=== PATIENT | male | born 1930 | race Caucasian/White ===

== ENCOUNTER 2016-11-08 13:49 | Outpatient (CLI) | payer MEDICARE, OTHER ==
[2016-04-28 20:57] VITALS: BP 130/78
== END 2016-11-08 13:50 ==
LOC: LAB 13:49
PROVIDERS: ATTEND Internal Medicine Cardiovascular Disease
DX: Z51.81 Encounter for therapeutic drug level monitoring (principal); Z79.01 Long term (current) use of anticoagulants
CPT/HCPCS: 36415; 85610

== ENCOUNTER 2016-12-06 14:02 | Outpatient (CLI) | payer MEDICARE, OTHER ==
[2016-04-28 20:57] VITALS: BP 130/78
== END 2016-12-06 14:03 ==
LOC: LAB 14:02
PROVIDERS: ATTEND Internal Medicine Cardiovascular Disease
DX: Z51.81 Encounter for therapeutic drug level monitoring (principal); Z79.01 Long term (current) use of anticoagulants; I48.0 Paroxysmal atrial fibrillation
CPT/HCPCS: 36415; 85610

== ENCOUNTER 2016-12-13 11:29 | Outpatient (CLI) | payer MEDICARE, OTHER ==
[2016-04-28 20:57] VITALS: BP 130/78
== END 2016-12-13 11:30 ==
LOC: LAB 11:29
PROVIDERS: ATTEND Internal Medicine Cardiovascular Disease
DX: I48.0 Paroxysmal atrial fibrillation (principal)
CPT/HCPCS: 36415; 85610

== ENCOUNTER 2016-12-22 08:02 | Outpatient (CLI) | payer MEDICARE, OTHER ==
[2016-04-28 20:57] VITALS: BP 130/78
[2016-12-22 08:24] LABS: BASOPHILS % 0.7 (0.0-1.5); LYMPHOCYTES # 3.1 # k/uL (0.6-4.0); MEAN CORPUSCULAR HEMOGLOBIN 31.2 pg (28.0-34.0); MONOCYTES # 0.3 # k/uL (0.0-0.9); MONOCYTES % 4.3 % (0.0-11.0)
[2016-12-22 08:48] LABS: eGFR (African) 33; eGFR (Non-African) 27
== END 2016-12-22 08:04 ==
LOC: LAB 08:02
PROVIDERS: ATTEND Internal Medicine Cardiovascular Disease
DX: I48.0 Paroxysmal atrial fibrillation (principal); E78.5 Hyperlipidemia, unspecified; I10 Essential (primary) hypertension
CPT/HCPCS: 36415; 80053; 80061; 84443; 85025

== ENCOUNTER 2017-01-02 12:03 | Outpatient (CLI) | payer MEDICARE, OTHER ==
[2016-04-28 20:57] VITALS: BP 130/78
== END 2017-01-02 12:04 ==
LOC: LAB 12:03
PROVIDERS: ATTEND Internal Medicine Cardiovascular Disease
DX: Z51.81 Encounter for therapeutic drug level monitoring (principal); Z79.01 Long term (current) use of anticoagulants; I48.91 Unspecified atrial fibrillation
CPT/HCPCS: 36415; 85610

== ENCOUNTER 2017-01-31 11:49 | Outpatient (CLI) | payer MEDICARE, OTHER ==
[2016-04-28 20:57] VITALS: BP 130/78
== END 2017-01-31 11:50 ==
LOC: LAB 11:49
PROVIDERS: ATTEND Internal Medicine Cardiovascular Disease
DX: Z51.81 Encounter for therapeutic drug level monitoring (principal); Z79.01 Long term (current) use of anticoagulants; I48.0 Paroxysmal atrial fibrillation
CPT/HCPCS: 36415; 85610

== ENCOUNTER 2017-02-28 10:07 | Outpatient (CLI) | payer MEDICARE, OTHER ==
[2016-04-28 20:57] VITALS: BP 130/78
== END 2017-02-28 10:10 ==
LOC: LAB 10:07
PROVIDERS: ATTEND Internal Medicine Cardiovascular Disease
DX: Z51.81 Encounter for therapeutic drug level monitoring (principal); Z79.01 Long term (current) use of anticoagulants; I48.0 Paroxysmal atrial fibrillation
CPT/HCPCS: 36415; 85610

== ENCOUNTER 2017-03-28 12:54 | Outpatient (CLI) | payer MEDICARE, OTHER ==
[2016-04-28 20:57] VITALS: BP 130/78
== END 2017-03-28 12:55 ==
LOC: LAB 12:54
PROVIDERS: ATTEND Internal Medicine Cardiovascular Disease
DX: I48.0 Paroxysmal atrial fibrillation (principal)
CPT/HCPCS: 36415; 85610

== ENCOUNTER 2017-04-25 09:10 | Outpatient (CLI) | payer MEDICARE, OTHER ==
[2016-04-28 20:57] VITALS: BP 130/78
== END 2017-04-25 09:20 ==
LOC: LAB 09:10
PROVIDERS: ATTEND Internal Medicine Hepatology
DX: Z51.81 Encounter for therapeutic drug level monitoring (principal); Z79.01 Long term (current) use of anticoagulants
CPT/HCPCS: 36415; 85610

== ENCOUNTER 2017-05-10 09:05 | Outpatient (CLI) | payer MEDICARE, OTHER ==
[2016-04-28 20:57] VITALS: BP 130/78
== END 2017-05-10 09:06 ==
LOC: LAB 09:05
PROVIDERS: ATTEND Internal Medicine Cardiovascular Disease
DX: I48.0 Paroxysmal atrial fibrillation (principal)
CPT/HCPCS: 36415; 85610

== ENCOUNTER 2017-05-31 09:43 | Outpatient (CLI) | payer MEDICARE, OTHER ==
[2016-04-28 20:57] VITALS: BP 130/78
== END 2017-05-31 09:44 ==
LOC: LAB 09:43
PROVIDERS: ATTEND Internal Medicine Cardiovascular Disease
DX: I48.0 Paroxysmal atrial fibrillation (principal)
CPT/HCPCS: 36415; 85610

== ENCOUNTER 2017-06-14 11:12 | Outpatient (CLI) | payer MEDICARE, OTHER ==
[2016-04-28 20:57] VITALS: BP 130/78
== END 2017-06-14 11:13 ==
LOC: LAB 11:12
PROVIDERS: ATTEND Internal Medicine Cardiovascular Disease
DX: I48.0 Paroxysmal atrial fibrillation (principal)
CPT/HCPCS: 36415; 85610

== ENCOUNTER 2017-07-12 10:59 | Outpatient (CLI) | payer MEDICARE, OTHER ==
[2016-04-28 20:57] VITALS: BP 130/78
== END 2017-07-12 11:00 ==
LOC: LAB 10:59
PROVIDERS: ATTEND Internal Medicine Cardiovascular Disease
DX: Z79.01 Long term (current) use of anticoagulants (principal)
CPT/HCPCS: 36415; 85610

== ENCOUNTER 2017-07-26 10:10 | Outpatient (CLI) | payer MEDICARE, OTHER ==
[2016-04-28 20:57] VITALS: BP 130/78
== END 2017-07-26 10:11 ==
LOC: LAB 10:10
PROVIDERS: ATTEND Internal Medicine Cardiovascular Disease
DX: Z79.1 Long term (current) use of non-steroidal anti-inflammatories (NSAID) (principal)
CPT/HCPCS: 36415; 85610

== ENCOUNTER 2017-08-02 10:19 | Outpatient (CLI) | payer MEDICARE, OTHER ==
[2016-04-28 20:57] VITALS: BP 130/78
== END 2017-08-02 10:20 ==
LOC: LAB 10:19
PROVIDERS: ATTEND Internal Medicine Cardiovascular Disease
DX: Z79.01 Long term (current) use of anticoagulants (principal)
CPT/HCPCS: 36415; 85610

== ENCOUNTER 2017-08-09 09:33 | Outpatient (CLI) | payer MEDICARE, OTHER ==
[2016-04-28 20:57] VITALS: BP 130/78
== END 2017-08-09 09:34 ==
LOC: LAB 09:33
PROVIDERS: ATTEND Internal Medicine Cardiovascular Disease
DX: Z79.01 Long term (current) use of anticoagulants (principal)
CPT/HCPCS: 36415; 85610

== ENCOUNTER 2017-08-21 08:44 | Outpatient (CLI) | payer MEDICARE, OTHER ==
[2016-04-28 20:57] VITALS: BP 130/78
[2017-08-21 09:23] LABS: EOSINOPHILS % 12.3 % (0.0-6.8); MEAN CORPUSCULAR HEMOGLOBIN 29.5 pg (28.0-34.0); MEAN CORPUSCULAR VOLUME 91.8 fl (80.0-100.0); MONOCYTES % 4.7 % (0.0-11.0); NEUTROPHILS # 3.3 # k/uL (1.4-7.7)
[2017-08-21 09:39] LABS: eGFR (African) 32; eGFR (Non-African) 26
== END 2017-08-21 08:45 ==
LOC: LAB 08:44
PROVIDERS: ATTEND Internal Medicine Cardiovascular Disease
DX: N18.4 Chronic kidney disease, stage 4 (severe) (principal); I48.91 Unspecified atrial fibrillation; I12.9 Hypertensive chronic kidney disease with stage 1 through stage 4 chronic kidney disease, or unspecified chronic kidney disease; Z68.24 Body mass index [BMI] 24.0-24.9, adult
CPT/HCPCS: 36415; 80053; 80061; 84550; 85025; 85610

== ENCOUNTER 2017-08-28 09:46 | Outpatient (CLI) | payer MEDICARE, OTHER ==
[2016-04-28 20:57] VITALS: BP 130/78
== END 2017-08-28 09:50 ==
LOC: LAB 09:46
PROVIDERS: ATTEND Internal Medicine Cardiovascular Disease
DX: Z79.01 Long term (current) use of anticoagulants (principal)
CPT/HCPCS: 36415; 85610

== ENCOUNTER 2017-09-18 09:52 | Outpatient (CLI) | payer MEDICARE, OTHER ==
[2016-04-28 20:57] VITALS: BP 130/78
== END 2017-09-18 10:00 ==
LOC: LAB 09:52
PROVIDERS: ATTEND Internal Medicine Cardiovascular Disease
DX: Z79.01 Long term (current) use of anticoagulants (principal)
CPT/HCPCS: 36415; 85610

== ENCOUNTER 2017-10-16 09:40 | Outpatient (CLI) | payer MEDICARE, OTHER ==
[2016-04-28 20:57] VITALS: BP 130/78
== END 2017-10-16 10:40 ==
LOC: OUT 09:40
PROVIDERS: ATTEND Internal Medicine Cardiovascular Disease
DX: Z79.01 Long term (current) use of anticoagulants (principal)
CPT/HCPCS: 36415; 85610

== ENCOUNTER 2017-11-12 11:29 | Outpatient (CLI) | payer MEDICARE, OTHER ==
[2016-04-28 20:57] VITALS: BP 130/78
== END 2017-11-12 11:30 ==
LOC: LAB 11:29
PROVIDERS: ATTEND Internal Medicine Cardiovascular Disease
DX: Z79.01 Long term (current) use of anticoagulants (principal)
CPT/HCPCS: 36415; 85610

== ENCOUNTER 2017-12-07 11:58 | Emergency (ER) | payer MEDICARE, OTHER ==
--- NOTE | 2017-12-07 12:32 | ED Physician Documentation ---
Fall - HISTORIAN Historian: spouse - HPI Stated Complaint: Right Hip Pain s/p Fall Chief Complaint: Fall Additional Information: 2 days ago, fell in living room, not witnessed. started saying his right hiop hurt the next day. he can ambulate, he doesn't complain of pain, but does when palpated. no other complaints Onset: days ago (2 days) Where: home r: mild Associated Symptoms:: no loss of consciousness Location of Pain/Injury: hip Injury to Right Extremity: hip Injury to Left Extremity: none Further Comments: no - ROS CONST: no problems NEURO: denies: dizziness, anxiety MS/SKIN/LYMPH: denies: weakness, numbness, neck pain, back pain, ankle swelling , leg swelling, rash EYES/ENT: none CVS/RESP: none GI/: denies: problems urinating, nausea - PAST HX Past History: cardiac disease, other (pacer) Allergies/Adverse Reactions: Allergies Allergy/AdvReac Type Severity Reaction Status Date / Time hydralazine HCl [From BiDil] Allergy Unknown Verified 12/07/17 12:05 Penicillins Allergy Unknown Verified 12/07/17 12:05 isosorbide dinitrate Allergy Verified 12/07/17 12:05 [From BiDil] Home Medications: Ambulatory Orders Medication Instructions Recorded Citalopram Hydrobromide 10 mg PO DAILY 12/07/17 [Citalopram HBr] Levothyroxine Sodium [Synthroid] 50 mcg PO DAILY 12/07/17 Memantine HCl [Memantine HCl] 10 mg PO DAILY 12/07/17 Metoprolol Succinate [Toprol XL] 25 mg PO DAILY 12/07/17 QUEtiapine FUMARATE [Seroquel] 25 mg PO DAILY 12/07/17 Warfarin Sodium [Warfarin Sodium] 5 mg PO DAILY 12/07/17 amLODIPine BESYLATE [Norvasc] 5 mg PO DAILY 12/07/17 - SOCIAL HX Smoking History: non-smoker Alcohol Use: none Drug Use: none - FAMILY HX Family History: none - VITAL SIGNS Vital Signs: Vital Signs Temp Pulse Resp BP Pulse Ox 97 F L 72 18 130/61 98 12/07/17 11:58 12/07/17 11:58 12/07/17 11:58 12/07/17 11:58 12/07/17 11:58 - REVIEWED ASSESSMENTS Nursing Assessment Reviewed: Yes Vitals Reviewed: Yes ED Results Lab/Radiology - Radiology Radiology Impressions: pelvis xray NAD right hip - Orders Orders: ED Orders Category Date Time Status PELVIS AP 1 OR 2 VIEWS [RAD] Stat Exams 12/07/17 Ordered Fall Physical Exam - Physical Exam General Appearance: no acute distress, alert Head: non-tender, no swelling Neck: non-tender, painless ROM Eye: EOMI ENT: nml external inspection, no dental injury Resp/CVS: chest non-tender Abdomen: soft Neuro: sensation nml, mood/affect nml Skin: color nml, no rash Back: normal inspection, no CVA tenderness, no vertebral tenderness Extremities: atraumatic, pelvis stable, no pedal edema, nml ROM. No: hips non- tender Joint: Nml gait/weight bearing - Luis Coma Score Eyes Open: Spontaneous Speech: Oriented Motor: Obeys Commands Discharge Clincal Impression: Contusion of right hip region Fall Qualifiers: Encounter type: initial encounter Qualified Code(s): W19.XXXA - Unspecified fall, initial encounter Referrals: Scot Garcia MD [Primary Care Provider] - 2 Days Condition: Good Disposition: 01 HOME, SELF-CARE Decision to Admit: NO Date of Decison to Admit: 12/07/17 Decision Time: 13:32
--- NOTE | 2017-12-07 13:44 | Diagnostic Imaging Report ---
LUL MYERS [facility] [id number] [facility] [address] [facility] [address] [place], [place]. [address] Report Submission Date: Dec 07, 2017 1:18:22 PM INKER MACHINE Patient Study Name: JOANNE BRADSHAW Date: Dec 07, 2017 12:49:33 PM INKER MACHINE Modality Type: CR Gender: M Description: PELVIS : [birth year] Institution: [facility] Physician: LUL MYERS Single frontal view of the pelvis History: PELVIS, RT SIDED PELVIC PAIN AFTER FALL 2 DAYS AGO No similar comparison studies The pubic symphysis and bilateral sacroiliac joints are intact. Degenerative changes are seen in the lower lumbar spine. Surgical clips are noted overlying the left sacroiliac joint. A rounded sclerotic focus is noted at the left sacral ala. Sclerotic line is noted at the left femoral head. Large amount of stool present. Impression: 1. No obvious acute fracture or dislocation of the right hip. However only a single frontal view of the pelvis is provided. 2. Vagus sclerotic line along the left femoral head is seen, while this may be related to architecture, fracture is difficult to entirely exclude. Recommend dedicated bilateral hip radiographs. 3. Degenerative changes in the lower lumbar spine and hips 4. Intact pubic symphysis and sacroiliac joints. Electronically signed on Dec 07, 2017 1:18:22 PM INKER MACHINE by: Kymberly LANDA
[2017-12-07 13:45] VITALS: BP 113/62
== END 2017-12-07 13:44 | disposition home or self-care (01) ==
LOC: ED 11:58
DX: M25.551 Pain in right hip (principal); W19.XXXA Unspecified fall, initial encounter
CPT/HCPCS: 72170; 99282

== ENCOUNTER 2017-12-10 12:15 | Outpatient (CLI) | payer MEDICARE, OTHER | END 2017-12-10 12:16 | LOC: LAB 12:15 | PROVIDERS: ATTEND Internal Medicine Cardiovascular Disease | DX: Z79.01 Long term (current) use of anticoagulants (principal) | CPT/HCPCS: 36415; 85610 ==

== ENCOUNTER 2017-12-31 08:36 | Outpatient (CLI) | payer MEDICARE, OTHER ==
[2017-12-31 08:57] LABS: BASOPHILS % 0.9 (0.0-1.5); EOSINOPHILS % 10.7 % (0.0-6.8); MEAN CORPUSCULAR HEMOGLOBIN 30.7 pg (28.0-34.0); MEAN CORPUSCULAR VOLUME 97.8 fl (80.0-100.0); MONOCYTES % 4.5 % (0.0-11.0); NEUTROPHILS # 3.5 # k/uL (1.4-7.7)
[2017-12-31 09:27] LABS: eGFR (African) 31; eGFR (Non-African) 26
== END 2017-12-31 08:37 ==
LOC: LAB 08:36
PROVIDERS: ATTEND Internal Medicine Cardiovascular Disease
DX: I42.0 Dilated cardiomyopathy (principal); E78.5 Hyperlipidemia, unspecified; E03.9 Hypothyroidism, unspecified
CPT/HCPCS: 36415; 80053; 80061; 84443; 85025

== ENCOUNTER 2018-01-07 10:18 | Outpatient (CLI) | payer MEDICARE, OTHER | END 2018-01-07 10:20 | LOC: LAB 10:18 | PROVIDERS: ATTEND Internal Medicine Cardiovascular Disease | DX: Z79.01 Long term (current) use of anticoagulants (principal) | CPT/HCPCS: 36415; 85610 ==

== ENCOUNTER 2018-01-09 15:51 | Outpatient (CLI) | payer MEDICARE, OTHER ==
--- NOTE | 2018-01-14 11:04 | OP Clinic Progress Note ---
REASON FOR VISIT: This 87-year-old man was seen accompanied by his . He has a marked hearing loss. He has a history of cerumen impaction in the more distant past. Both ear canals are 100% packed all the way down to the eardrums. I debrided and cleaned the right ear first and then the left ear. The left ear was drier operator head and came out in total. The left ear, in addition to physical debridement with hooks and picks, had irrigations with rubbing alcohol and first with a number 7 and then a number 5 suction. It appeared to be clear. The eardrums are intact. The right ear has a fairly significant divot in the lateral aspect of the ear canal. This was cleaned also. PLAN: The patient may return on a p.r.n. basis. cc: Dr. Scot LANDA
== END 2018-01-09 15:52 ==
LOC: ENT 15:51
PROVIDERS: ATTEND Otolaryngology
DX: H61.23 Impacted cerumen, bilateral (principal)
CPT/HCPCS: 69210; G0463

== ENCOUNTER 2018-01-22 11:36 | Outpatient (CLI) | payer MEDICARE, OTHER | END 2018-01-22 11:38 | LOC: LAB 11:36 | PROVIDERS: ATTEND Internal Medicine Cardiovascular Disease | DX: Z79.01 Long term (current) use of anticoagulants (principal) | CPT/HCPCS: 36415; 85610 ==

== ENCOUNTER 2018-02-04 11:31 | Outpatient (CLI) | payer MEDICARE, OTHER | END 2018-02-04 11:33 | LOC: LAB 11:31 | PROVIDERS: ATTEND Internal Medicine Cardiovascular Disease | DX: Z79.01 Long term (current) use of anticoagulants (principal) | CPT/HCPCS: 36415; 85610 ==

== ENCOUNTER 2018-02-07 12:00 | Outpatient (CLI) | payer MEDICARE, OTHER ==
[2018-02-07 12:16] LABS: EOSINOPHILS % 12.6 % (0.0-6.8); MEAN CORPUSCULAR HEMOGLOBIN 30.7 pg (28.0-34.0); MEAN CORPUSCULAR VOLUME 96.2 fl (80.0-100.0); MONOCYTES % 4.3 % (0.0-11.0); NEUTROPHILS # 3.5 # k/uL (1.4-7.7)
[2018-02-07 12:56] LABS: eGFR (African) 31; eGFR (Non-African) 26
== END 2018-02-07 12:05 ==
LOC: LAB 12:00
PROVIDERS: ATTEND Internal Medicine Nephrology
DX: N18.4 Chronic kidney disease, stage 4 (severe) (principal); I48.91 Unspecified atrial fibrillation; I12.9 Hypertensive chronic kidney disease with stage 1 through stage 4 chronic kidney disease, or unspecified chronic kidney disease; Z68.24 Body mass index [BMI] 24.0-24.9, adult
CPT/HCPCS: 36415; 80053; 84443; 84550; 85025

== ENCOUNTER 2018-03-06 09:29 | Outpatient (CLI) | payer MEDICARE, OTHER | END 2018-03-06 09:30 | LOC: LAB 09:29 | PROVIDERS: ATTEND Internal Medicine Cardiovascular Disease | DX: Z79.01 Long term (current) use of anticoagulants (principal) | CPT/HCPCS: 36415; 85610 ==

== ENCOUNTER 2018-03-14 12:48 | Outpatient (CLI) | payer MEDICARE, OTHER ==
[2018-03-14 13:30] LABS: BASOPHILS % 0.5 (0.0-1.5); EOSINOPHILS % 16.1 % (0.0-6.8); MEAN CORPUSCULAR HEMOGLOBIN 29.7 pg (28.0-34.0); MONOCYTES % 4.5 % (0.0-11.0); NEUTROPHILS # 2.4 # k/uL (1.4-7.7)
[2018-03-14 14:16] LABS: eGFR (African) 26; eGFR (Non-African) 22
== END 2018-03-14 12:50 ==
LOC: LAB 12:48
PROVIDERS: ATTEND Internal Medicine Cardiovascular Disease
DX: Z79.01 Long term (current) use of anticoagulants (principal); Z79.899 Other long term (current) drug therapy; E53.9 Vitamin B deficiency, unspecified; E55.9 Vitamin D deficiency, unspecified
CPT/HCPCS: 36415; 80053; 82306; 82607; 84439; 84443; 85025; 85610

== ENCOUNTER 2018-03-25 11:36 | Outpatient (CLI) | payer MEDICARE, OTHER | END 2018-03-25 14:06 | LOC: LAB 11:36 | PROVIDERS: ATTEND Internal Medicine Cardiovascular Disease | DX: Z79.01 Long term (current) use of anticoagulants (principal) | CPT/HCPCS: 36415; 85610 ==

== ENCOUNTER 2018-04-22 09:49 | Outpatient (CLI) | payer MEDICARE, OTHER | END 2018-04-22 09:50 | LOC: LAB 09:49 | PROVIDERS: ATTEND Internal Medicine Cardiovascular Disease | DX: Z79.01 Long term (current) use of anticoagulants (principal) | CPT/HCPCS: 36415; 85610 ==

== ENCOUNTER 2018-04-29 09:28 | Emergency (ER) | payer MEDICARE, OTHER ==
[2018-04-29 10:56] LABS: BASOPHILS % 0.4 (0.0-1.5); EOSINOPHILS % 8.5 % (0.0-6.8); MEAN CORPUSCULAR HEMOGLOBIN 30.3 pg (28.0-34.0); MEAN CORPUSCULAR VOLUME 95.1 fl (80.0-100.0); MONOCYTES % 4.4 % (0.0-11.0); NEUTROPHILS # 3.9 # k/uL (1.4-7.7)
[2018-04-29 11:40] LABS: eGFR (African) 28; eGFR (Non-African) 23
--- NOTE | 2018-04-29 11:44 | ED Physician Documentation ---
Fall - HISTORIAN Historian: spouse - HPI Chief Complaint: Fall Onset: today Where: home Associated Symptoms:: no loss of consciousness Injury to Right Extremity: none Injury to Left Extremity: none Further Comments: yes (87 year old male patient brought in via EMS. reports patient states he fell this morning. states patient is not able to get himself off the floor alone. States she found him in the bed with 1 leg hanging off the side of the bed. cares for patient at home, no services in the home. Son lives near by and assists as needed. reports patient is at his baseline mentation.) - ROS CONST: no problems (per ; patient has dementia, unable to answer questions. ) NEURO: denies: dizziness, anxiety, depression, other MS/SKIN/LYMPH: denies: weakness, numbness, neck pain, back pain, ankle swelling , leg swelling, rash, other EYES/ENT: none CVS/RESP: none GI/: denies: problems urinating, nausea, vomiting, other - PAST HX Past History: other (dementia, HTN, A fib, BPH, OA, HLD, hypothyroid, chronic renal insufficiency) Allergies/Adverse Reactions: Allergies Allergy/AdvReac Type Severity Reaction Status Date / Time hydralazine HCl [From BiDil] Allergy Unknown Verified 04/29/18 13:03 Penicillins Allergy Unknown Verified 04/29/18 13:03 isosorbide dinitrate Allergy Verified 04/29/18 13:03 [From BiDil] Home Medications: Ambulatory Orders Medication Instructions Recorded Citalopram Hydrobromide 10 mg PO DAILY 12/07/17 [Citalopram HBr] Memantine HCl [Memantine HCl] 10 mg PO DAILY 12/07/17 Metoprolol Succinate [Toprol XL] 25 mg PO DAILY 12/07/17 Warfarin Sodium [Warfarin Sodium] 5 mg PO DAILY 12/07/17 amLODIPine BESYLATE [Norvasc] 5 mg PO DAILY 12/07/17 - SOCIAL HX Smoking History: non-smoker - FAMILY HX Family History: denies: none - VITAL SIGNS Vital Signs: Vital Signs Temp Pulse Resp BP Pulse Ox 113/62 12/07/17 13:44 - REVIEWED ASSESSMENTS Nursing Assessment Reviewed: Yes Vitals Reviewed: Yes Progress - Progress Progress: No obvious injury; no grimacing or signs of pain with assessment. central services tech consult offered. refused - states her son helps with patient's care. Does not want home health. "We like to go out to eat. I don't want to be stuck at home." Patient able to get himself off stretcher and into wheelchair with minimal assistance. ED Results Lab/Radiology - Lab Results Lab Results: Lab Results 04/29/18 04/29/18 10:50 10:50 WBC 7.50 K/ul K/ul (4.00-12.00) RBC 3.51 M/ul L M/ul (3.90-5.20) Hgb 10.7 g/dL L g/dL (12.0-18.0) Hct 33.4 % L % (37.0-53.0) MCV 95.1 fl fl (80.0-100.0) MCH 30.3 pg pg (28.0-34.0) MCHC 31.9 g/dL g/dL (30.0-36.0) RDW 14.4 % H % (11.3-14.3) Plt Count 221 K/mm3 K/mm3 (130-400) Neut % (Auto) 52.4 % % (39.0-79.0) Lymph % (Auto) 32.5 % % (16.0-50.0) [place] % (Auto) 4.4 % % (0.0-11.0) Eos % (Auto) 8.5 % H % (0.0-6.8) Baso % (Auto) 0.4 (0.0-1.5) Neut # (Auto) 3.9 # k/uL # k/uL (1.4-7.7) Lymph # (Auto) 2.4 # k/uL # k/uL (0.6-4.0) [place] # (Auto) 0.3 # k/uL # k/uL (0.0-0.9) Eos # (Auto) 0.6 # k/uL # k/uL (0.0-0.6) Baso # (Auto) 0.0 # k/uL # k/uL (0.0-0.5) Reactive Lymphs % 1.8 % % (0.0-5.0) Reactive Lymphs # 0.1 # k/uL # k/uL (0.0-0.8) Sodium 144 mmol/L mmol/L (136-145) Potassium 3.8 mmol/L mmol/L (3.5-5.1) Chloride 107 mmol/L mmol/L (98-107) Carbon Dioxide 26 mmol/L mmol/L (22-30) BUN 46 mg/dL H mg/dL (9-20) Creatinine 2.80 mg/dL H mg/dL (0.66-1.25) Est GFR ( Amer) 28 L (60 - ) Est GFR (Non-Af Amer) 23 L (60 - ) Glucose 101 mg/dL mg/dL (74-106) Calcium 9.8 mg/dL mg/dL (8.4-10.2) Total Bilirubin 0.5 mg/dL mg/dL (0.2-1.3) AST 25 U/L U/L (15-46) ALT 29 U/L U/L (13-69) Alkaline Phosphatase 73 U/L U/L (38-126) Total Protein 7.3 g/dL g/dL (6.3-8.2) Albumin 4.1 g/dL g/dL (3.5-5.0) - Orders Orders: ED Orders Category Date Time Status CBC/PLATELET/DIFF Stat Lab 04/29/18 10:50 Completed CMP Stat Lab 04/29/18 10:50 Completed UA W/MICRO IF INDICATED Stat Lab 04/29/18 10:43 Ordered Fall Physical Exam - Physical Exam General Appearance: no acute distress, alert Head: non-tender, no swelling, no obvious injury Neck: non-tender, painless ROM, trachea midline Eye: DANILO, lids & conjunct. nml ENT: nml external inspection, no dental injury, no oral injury Resp/CVS: chest non-tender, no ecchymosis, breath sounds nml, no resp. distress , other (irregularly irregular) Abdomen: soft, no organomegaly, normal bowel sounds, no abdominal bruit, no distension Neuro: CN's nml as tested, clock mechanic nml, clock mechanic symmetrical, other (pleasant mood, follow commands, will not answer simple questions at this time; MAEx4, purposeful - at his baseline per . ) Skin: color nml, no rash, nml palp., dry, other (no ecchymosis or signs of injury noted ) Back: normal inspection Extremities: atraumatic, pelvis stable, hips non-tender, no pedal edema, nml ROM , nml color/temp - Grant Coma Score Eyes Open: Spontaneous Speech: Confused Motor: Obeys Commands Discharge Clincal Impression: Dementia, Unwitnessed fall Referrals: Scot Garcia MD [Primary Care Provider] - 2 Days Condition: Stable Disposition: 01 HOME, SELF-CARE Decision to Admit: NO Decision Time: 12:50
[2018-04-29 13:07] VITALS: BP 146/69
== END 2018-04-29 11:57 | disposition home or self-care (01) ==
LOC: ED 09:28
DX: F03.90 Unspecified dementia, unspecified severity, without behavioral disturbance, psychotic disturbance, mood disturbance, and anxiety (principal)
CPT/HCPCS: 36415; 80053; 85025; 99283

== ENCOUNTER 2018-05-06 09:08 | Outpatient (CLI) | payer MEDICARE, OTHER | END 2018-05-06 09:10 | LOC: LAB 09:08 | PROVIDERS: ATTEND Internal Medicine Cardiovascular Disease | DX: Z79.01 Long term (current) use of anticoagulants (principal) | CPT/HCPCS: 36415; 85610 ==

== ENCOUNTER 2018-05-20 12:37 | Outpatient (CLI) | payer MEDICARE, OTHER | END 2018-05-20 13:53 | LOC: LAB 12:37 | PROVIDERS: ATTEND Internal Medicine Cardiovascular Disease | DX: Z79.01 Long term (current) use of anticoagulants (principal) | CPT/HCPCS: 36415; 85610 ==

== ENCOUNTER 2018-06-03 09:29 | Outpatient (CLI) | payer MEDICARE, OTHER | END 2018-06-03 09:30 | LOC: LAB 09:29 | PROVIDERS: ATTEND Internal Medicine Cardiovascular Disease | DX: Z79.01 Long term (current) use of anticoagulants (principal) | CPT/HCPCS: 36415; 85610 ==

== ENCOUNTER 2018-06-08 11:50 | Emergency (ER) | payer MEDICARE, OTHER ==
[2018-06-08 12:18] LABS: BASOPHILS % 0.2 (0.0-1.5); EOSINOPHILS % 0.1 % (0.0-6.8); MEAN CORPUSCULAR HEMOGLOBIN 31.2 pg (28.0-34.0); MEAN CORPUSCULAR VOLUME 95.9 fl (80.0-100.0); MONOCYTES % 6.3 % (0.0-11.0); NEUTROPHILS # 6.4 # k/uL (1.4-7.7)
--- NOTE | 2018-06-08 12:21 | ED Physician Documentation ---
General Adult - HISTORIAN Historian: spouse - HPI Stated Complaint: leg pain Chief Complaint: General Adult Additional Information: Pt cannot contribute in any way to CC, HPI, or ROS 2/2 dementia. Pe rwife, He has had several changes in behavior over the last week. He has been waking in the middle of the night and sitting up in bed. He typically toilets himself, but has been incontinent. He typically lies in bed with right leg hanging onn the edge. Right foot and lwer leg are always swollen. He has been swinging the lower right leg so that it hits the edge of the bed. He seemed to be in pain when his son tried to move/lift him this morning. He has been eating as usual. He doesn't drink much water. HX renal failure, COPD, dementia, prostate cancer. Sees Dr. Ramos, neurologist at [place], Dr. Rivera nephrology, and Dr. Cid (sp?). - ROS CONST: no problems - PAST HX Past History: other (above, plus colostomy) Allergies/Adverse Reactions: Allergies Allergy/AdvReac Type Severity Reaction Status Date / Time hydralazine HCl [From BiDil] Allergy Unknown Verified 06/08/18 12:37 Penicillins Allergy Unknown Verified 06/08/18 12:37 isosorbide dinitrate Allergy Verified 06/08/18 12:37 [From BiDil] Home Medications: Ambulatory Orders Medication Instructions Recorded Citalopram Hydrobromide 10 mg PO DAILY 12/07/17 [Citalopram HBr] Memantine HCl [Memantine HCl] 10 mg PO DAILY 12/07/17 Metoprolol Succinate [Toprol XL] 25 mg PO DAILY 12/07/17 Warfarin Sodium [Warfarin Sodium] 5 mg PO DAILY 12/07/17 amLODIPine BESYLATE [Norvasc] 5 mg PO DAILY 12/07/17 - SOCIAL HX Smoking History: non-smoker - FAMILY HX Family History: No - VITAL SIGNS Vital Signs: Vital Signs Temp Pulse Resp BP Pulse Ox 146/69 04/29/18 13:04 - REVIEWED ASSESSMENTS Nursing Assessment Reviewed: Yes Vitals Reviewed: Yes Progress - Progress Progress: Report Submission Date: Jun 08, 2018 1:17:40 PM CDT Patient Study Name: JOANNE BRADSHAW Date: Jun 08, 2018 12:27:12 PM CDT Modality Type: DX Gender: M Description: LOWER EXTREMITY : [birth year] Institution: [facility] Physician: AYLEEN LARES - ER Right tibia fibula two views History: Swelling and bruising Findings: The right calf is swollen. There is no evidence of fracture or dislocation. Arterial calcifications are observed. Impression: Soft tissue swelling and atherosclerosis. Electronically signed on Jun 08, 2018 1:17:40 PM CDT by: Nj Quevedo Report Submission Date: Jun 08, 2018 1:19:00 PM CDT Patient Study Name: JOANNE BRADSHAW Date: Jun 08, 2018 12:21:52 PM CDT Modality Type: DX Gender: M Description: CHEST : [birth year] Institution: [facility] Physician: AYLEEN LARES - ER Portable chest History: Leg swelling. Findings: Low lung volumes are observed. Hazy bibasilar opacity is present. Heart size and pulmonary vascularity are exaggerated by poor inspiratory effort. Dual lead transvenous pacemaker is noted. No pleural effusions are identified. Impression: 1. Low lung volumes with hazy bibasilar opacity possibly representing atelectasis, edema, or infiltrate. 2. Pacemaker. Electronically signed on Jun 08, 2018 1:19:00 PM CDT by: Nj Quevedo EKG and serial Trop I's OK. Labs reassuring. Will treat lung opacities with Zithromax. says he has not been coughing. BUN 40, so given cautious IV NS at 200 ml/hour while in ER. ED Results Lab/Radiology - Orders Orders: ED Orders Category Date Time Status Continuous EKG monitoring Q1H Care 06/08/18 12:[address] IV Lock 1T Care 06/08/18 12:09 Ordered CHEST 1VIEW [RAD] Stat Exams 06/08/18 Ordered TIBIA & FIBULA 2 VIEW [RAD] Stat Exams 06/08/18 Ordered CBC/PLATELET/DIFF Routine Lab 06/08/18 Ordered CMP Routine Lab 06/08/18 Ordered TROPONIN I (cTnI) Stat Lab 06/08/18 Ordered URINALYSIS Routine Lab 06/08/18 Ordered EKG WITH COMPARISON Stat Ther 06/08/18 Ordered General Adult Physical Exam - PHYSICAL EXAM GENERAL APPEARANCE: no distress EENT: eye inspection normal, ENT inspection normal NECK: normal inspection RESPIRATORY: breath sounds normal (decreased, poor effort) CVS: reg rate & rhythm, murmur (1/6 systolic) ABDOMEN: soft, normal bowel sounds, other (colostomy bag left. tender to palpation) BACK: normal inspection SKIN: warm/dry, normal color EXTREMITIES: other (purple ecchymosis medial mid lower right leg, with 4-5 cm diameter swelling, 1.5 cm elevation) NEURO: CN's nml as tested, motor nml Discharge Clincal Impression: Pulmonary infiltrate Contusion of leg, right Qualifiers: Encounter type: initial encounter Qualified Code(s): S80.11XA - Contusion of right lower leg, initial encounter Dementia Qualifiers: Dementia type: unspecified type Referrals: Scot Garcia MD [Primary Care Provider] - 2 Days Condition: Fair Disposition: 01 HOME, SELF-CARE Decision to Admit: NO Decision Time: 14:25
[2018-06-08] MEDS ORDERED: 0.9 % SODIUM CHLORIDE 500 ML IV ONE (13:17)
[2018-06-08] MEDS ORDERED: 0.9 % SODIUM CHLORIDE 1,000 ML IV SCH (13:30)
[2018-06-08 15:57] VITALS: BP 151/58
--- NOTE | 2018-06-08 16:10 | Diagnostic Imaging Report ---
AYLEEN LARES [facility] [address] [facility] [address] [place] [address]. [id number] Report Submission Date: Jun 08, 2018 1:19:00 PM CDT Patient Study Name: JOANNE BRADSHAW Date: Jun 08, 2018 12:21:52 PM CDT Modality Type: DX Gender: M Description: CHEST : [birth year] Institution: [facility] Physician: AYLEEN LARES Portable chest History: Leg swelling. Findings: Low lung volumes are observed. Hazy bibasilar opacity is present. Heart size and pulmonary vascularity are exaggerated by poor inspiratory effort. Dual lead transvenous pacemaker is noted. No pleural effusions are identified. Impression: 1. Low lung volumes with hazy bibasilar opacity possibly representing atelectasis, edema, or infiltrate. 2. Pacemaker. Electronically signed on Jun 08, 2018 1:19:00 PM CDT by: Nj LANDA
--- NOTE | 2018-06-08 16:11 | Diagnostic Imaging Report ---
AYLEEN LARES [facility] [address] [facility] [address] [address] Report Submission Date: Jun 08, 2018 1:17:40 PM CDT Patient Study Name: JOANNE BRADSHAW Date: Jun 08, 2018 12:27:12 PM CDT Modality Type: DX Gender: M Description: LOWER EXTREMITY : [birth year] Institution: [facility] Physician: AYLEEN LARES Right tibia fibula two views History: Swelling and bruising Findings: The right calf is swollen. There is no evidence of fracture or dislocation. Arterial calcifications are observed. Impression: Soft tissue swelling and atherosclerosis. Electronically signed on Jun 08, 2018 1:17:40 PM CDT by: Nj LANDA
== END 2018-06-08 15:15 | disposition home or self-care (01) ==
LOC: ED 11:50
DX: S80.11XA Contusion of right lower leg, initial encounter (principal); X58.XXXA Exposure to other specified factors, initial encounter; Y92.9 Unspecified place or not applicable; Y93.9 Activity, unspecified; Y99.9 Unspecified external cause status; F03.90 Unspecified dementia, unspecified severity, without behavioral disturbance, psychotic disturbance, mood disturbance, and anxiety; R91.8 Other nonspecific abnormal finding of lung field
CPT/HCPCS: 71045; 73590; 80053; 84484; 85025; 85610; 87040; 99284; S1016

== ENCOUNTER 2018-06-18 13:57 | Outpatient (CLI) | payer MEDICARE, OTHER | END 2018-06-18 14:00 | LOC: LAB 13:57 | PROVIDERS: ATTEND Internal Medicine Cardiovascular Disease | DX: Z79.01 Long term (current) use of anticoagulants (principal) | CPT/HCPCS: 36415; 85610 ==

== ENCOUNTER 2018-06-27 13:36 | Outpatient (CLI) | payer MEDICARE, OTHER | END 2018-06-27 14:14 | LOC: LAB 13:36 | PROVIDERS: ATTEND Internal Medicine Cardiovascular Disease | DX: Z79.01 Long term (current) use of anticoagulants (principal) | CPT/HCPCS: 36415; 85610 ==

== ENCOUNTER 2018-07-13 11:53 | Outpatient (CLI) | payer MEDICARE, OTHER | END 2018-07-13 11:54 | LOC: LAB 11:53 | PROVIDERS: ATTEND Family Medicine | DX: I48.91 Unspecified atrial fibrillation (principal); S80.10XA Contusion of unspecified lower leg, initial encounter; X58.XXXA Exposure to other specified factors, initial encounter; Y93.9 Activity, unspecified; Y92.9 Unspecified place or not applicable | CPT/HCPCS: 36415; 85610 ==

== ENCOUNTER 2018-07-20 07:26 | Outpatient (CLI) | payer SELFPAY | END 2018-07-20 07:30 | LOC: LAB 07:26 | PROVIDERS: ATTEND Family Medicine | DX: Z86.79 Personal history of other diseases of the circulatory system (principal) | CPT/HCPCS: 36415; 85610 ==

== ENCOUNTER 2018-07-23 15:12 | Outpatient (CLI) | payer MEDICARE, OTHER | END 2018-07-23 15:13 | LOC: LAB 15:12 | PROVIDERS: ATTEND Family Medicine | DX: Z86.79 Personal history of other diseases of the circulatory system (principal) | CPT/HCPCS: 36415; 85610 ==

== ENCOUNTER 2018-07-30 11:27 | Outpatient (CLI) | payer MEDICARE, OTHER | END 2018-07-30 11:30 | LOC: LAB 11:27 | PROVIDERS: ATTEND Family Medicine | DX: I48.91 Unspecified atrial fibrillation (principal) | CPT/HCPCS: 36415; 85610 ==

== ENCOUNTER 2018-08-06 14:15 | Outpatient (CLI) | payer MEDICARE, OTHER | END 2018-08-06 14:16 | LOC: LAB 14:15 | PROVIDERS: ATTEND Physician Assistant | DX: Z86.79 Personal history of other diseases of the circulatory system (principal) | CPT/HCPCS: 36415; 85610 ==

== ENCOUNTER 2018-08-13 13:06 | Outpatient (CLI) | payer MEDICARE, OTHER | END 2018-08-13 13:08 | LOC: LAB 13:06 | PROVIDERS: ATTEND Family Medicine | DX: I48.91 Unspecified atrial fibrillation (principal) | CPT/HCPCS: 36415; 85610 ==

== ENCOUNTER 2018-08-20 10:49 | Outpatient (CLI) | payer MEDICARE, OTHER | END 2018-08-20 10:50 | LOC: LAB 10:49 | PROVIDERS: ATTEND Family Medicine | DX: I48.91 Unspecified atrial fibrillation (principal) | CPT/HCPCS: 36415; 85610 ==

== ENCOUNTER 2018-08-27 07:08 | Outpatient (CLI) | payer MEDICARE, OTHER ==
[2018-08-27 08:01] LABS: MEAN CORPUSCULAR HEMOGLOBIN 28.8 pg (28.0-34.0)
[2018-08-27 08:02] LABS: BASOPHILS % 0.2 (0.0-1.5); EOSINOPHILS % 17.9 % (0.0-6.8); NEUTROPHILS # 2.5 # k/uL (1.4-7.7)
[2018-08-27 08:13] LABS: eGFR (Non-African) 34
== END 2018-08-27 11:21 ==
LOC: LAB 07:08
PROVIDERS: ATTEND Family Medicine
DX: I48.91 Unspecified atrial fibrillation (principal); I12.9 Hypertensive chronic kidney disease with stage 1 through stage 4 chronic kidney disease, or unspecified chronic kidney disease
CPT/HCPCS: 36415; 80053; 80061; 84550; 85025; 85610

== ENCOUNTER 2018-09-03 09:44 | Outpatient (CLI) | payer MEDICARE, OTHER | END 2018-09-03 09:46 | LOC: LAB 09:44 | PROVIDERS: ATTEND Family Medicine | DX: I48.91 Unspecified atrial fibrillation (principal) | CPT/HCPCS: 36415; 85610 ==